=== PATIENT | female | born 2000 | race Two or more races ===

== ENCOUNTER 2025-01-23 14:05 | Emergency (ER) | payer MEDICAID, SELFPAY ==
[2025-01-23 14:24] VITALS: BP 116/76; PULSE 92; RESP 16; TEMP 36.6; O2SAT 98
--- NOTE | 2025-01-23 14:46 | PD.EDWOUND ---
ED Wound/Laceration-RME/HPI General Chief Complaint: Wound/Laceration Stated Complaint: LAC PALM L) HAND Time Seen by Provider: 01/23/25 14:11 Source: patient Arrival date/time: 01/23/25 14:05 This is a case of 24-year-old female with no medical history came into the emergency room due to laceration on the left hand palmar area history of present illness started 1 hour prior to arrival in the emergency room patient was cutting brownies accidentally cut his left thumb sustaining a 1.5 cm laceration on the left palm no other injury patient tetanus shot is not up-to-date Limitations: no limitations Related Data Previous Rx's ?Medication ?Instructions ?Recorded cephalexin 500 mg capsule 500 mg PO QID #40 caps 01/23/25 ibuprofen 800 mg tablet 800 mg PO Q8H PRN pain #20 tabs 01/23/25 mupirocin 2 % topical ointment 1 applic topical TID #22 grams 01/23/25 Allergies Allergy/AdvReac Type Severity Reaction Status Date / Time No Known Allergies Allergy Verified 01/23/25 14:09 Review of Systems Review of Systems Systems Reviewed: All systems reviewed, normal except as documented Constitutional Constitutional: Reports system reviewed and no additional complaints, except as documented and Reports as per HPI Cardiovascular Cardiovascular: Reports system reviewed and no additional complaints, except as documented and Reports as per HPI Respiratory Respiratory: Reports system reviewed and no additional complaints, except as documented and Reports as per HPI Gastrointestinal Gastrointestinal: Reports system reviewed and no additional complaints, except as documented and Reports as per HPI Musculoskeletal Musculoskeletal: Reports other (Hand pain) Integumentary/Breasts Skin/Breast: Reports other (Laceration) Neurologic Neurologic: Reports system reviewed and no additional complaints, except as documented and Reports confusion Psychiatric Psychiatric: Reports confusion Past Medical History Past Medical History CARDIAC: Negative Congestive Heart Failure RESPIRATORY: Positive Bronchitis and Pneumonia; Negative Chronic Obstructive Pulmonary Disease (COPD) GENITOURINARY: Negative Renal Disease ENDOCRINE: Negative Diabetes Mellitus Type 1 or Diabetes Mellitus Type 2 Social History SMOKING STATUS: Current every day smoker ED Exam General Limitations: Present no limitations General appearance: Present alert, in no apparent distress and other (Awake alert oriented not in distress nontoxic looking well-hydrated well-nourished) Head Head exam: Present atraumatic Eye Eye exam: Present normal appearance, PERRL and EOMI ENT ENT exam: Present normal exam, normal oropharynx and mucous membranes moist Neck Neck exam: Present normal inspection, full ROM and trachea midline; Absent tenderness, meningismus, lymphadenopathy or thyromegaly Chest Chest inspection: Present normal inspection and symmetric chest wall rise; Absent tenderness, rash or abscess Respiratory Respiratory exam: Present normal lung sounds bilaterally; Absent respiratory distress, wheezes, stridor, accessory muscle use or prolonged expiratory phase Cardiovascular Cardiovascular exam: Present regular rate, normal rhythm and normal heart sounds; Absent bradycardia, tachycardia, irregular rhythm, systolic murmur or diastolic murmur Abdominal Exam Abdominal exam: Present soft and normal bowel sounds; Absent distention, tenderness, guarding, rebound, rigidity, diminished bowel sounds, hyperactive bowel sounds, hypoactive bowel sounds or organomegaly Extremities Exam Extremities exam: Present normal inspection and full ROM Back Exam Back exam: Present normal inspection and full ROM Neurological Exam Neurological exam: Present alert, oriented X3, CN II-XII intact, normal gait and reflexes normal; Absent motor sensory deficit Psychiatric Psychiatric exam: Present normal affect and normal mood Skin Skin exam: Present warm, dry, intact, normal color and other (Noted 1.5 cm linear laceration left palm minimal bleeding no foreign body no bone or tendon injury no abscess no cellulitis ROM intact pulses were full and equal capillary refill less than 2 seconds sensory intact nail intact) Course Quality Measures none Orders Category Date Time Status Ibuprofen Tab [Motrin Tab] Med 01/23/25 14:36 Discontinued 800 mg PO X1 ONE TET,DIP/PERT AC (Adult)-Tdap [Boostrix Adult (Tdap) Med 01/23/25 14:36 Discontinued Vacc] 0.5 ml IMI .ONCE ONE cephALEXin [Keflex] Med 01/23/25 14:36 Discontinued 500 mg PO X1 ONE Vital Signs Vital signs: Vital Signs Temperature 97.9 F 01/23/25 14:24 Pulse Rate 92 01/23/25 14:24 Respiratory Rate 16 01/23/25 14:24 Blood Pressure 116/76 01/23/25 14:24 Pulse Oximetry (%) 98 01/23/25 14:24 Oxygen Delivery Method Room Air 01/23/25 14:24 Oxygen saturation is 98% room air PROCEDURES: Laceration Laceration 1: Side (If applicable): left (Left palmar) and right Size (cm): 1.5 Description: linear Depth: simple, single layer Local Anesthetic: lidocaine 1% Amount of anesthesia used (mL): 3 Pre-repair: wound explored, irrigated extensively and deep structures intact Skin layer closed with: nylon Suture size (cm): 4-0 Number of sutures: 3 Technique: simple, interrupted Wound / Laceration MDM Narrative MDM Narrative:: This is a case of 24-year-old female with no medical history came into the emergency room due to laceration on the left hand palmar area history of present illness started 1 hour prior to arrival in the emergency room patient was cutting brownies accidentally cut his left thumb sustaining a 1.5 cm laceration on the left palm no other injury patient tetanus shot is not up-to-date physical examination patient is awake alert oriented not in distress nontoxic looking well-hydrated well-nourished patient noted to have 1.5 linear laceration on the left thumb minimal bleeding no foreign body no tendon no bone injury no abscess no cellulitis ROM intact pulses were full and equal capillary refill less than 2 seconds sensory intact laceration repair was performed patient tolerated well the procedure bleeding controlled procedure done via [place] protocol and via sterile technique patient will follow-up with PCP in 2 days for reevaluation worsening symptoms or any signs and symptoms infection return to the emergency room immediately or call 911 patient was prescribed with cephalexin and mupirocin ointment to prevent infection and ibuprofen for pain Patient was discharged with comfortable condition walking with stable gait. Patient verbalized no further complains explained diagnosis and answered patient question. Patient is comfortable with the proposed management plan including the need to follow up with his/her primary care physician and any specialist if applicable Discussed patient for any urgent condition or worsening sx, He/She needed to go to emergency room immediately or call 911. Patient acknowledge the responsibility to follow up as instructed and to monitor her/his symptoms. For any persistence of the symptoms for more than 3-5 days return precaution advised. Discussed the result of the test and was given printed discharge instruction Patient data External records reviewed:: [facility] previous records Clinical information provided by:: patient Social determinants that could affect healthcare access:: none Patient has the following chronic illnesses:: None How is presenting disease/condition affected by chronic disease/condition?: no chronic disease Evaluation data The following diagnostics were reviewed and interpreted by me:: other (specify) (None) Lab and/or radiology exams considered but not ordered:: None Interpretation Summary: None Medications / Prescriptions Medications or Prescriptions considered but not ordered:: Given Medication administrations:: Medication Administration History Discontinued Medications Cephalexin HCl (Cephalexin 250 Mg Capsule) 500 mg PO X1 ONE Stop: 01/23/25 14:37 Diphtheria/Tetanus/Acell Pertussis (Diphth,Pertuss(Acell),Tet Vac 0.5 Ml Syr- Adult) 0.5 ml IMi .ONCE ONE Stop: 01/23/25 14:37 Ibuprofen (Ibuprofen Tab 400 Mg Tablet) 800 mg PO X1 ONE Stop: 01/23/25 14:37 Given Consultations Consultation(s) initiated? (list below): No Diagnosis Wound Differential Diagnosis: laceration Most likely diagnosis given after review of the tests above:: Palmar laceration Admission Indicated Admission indicated?: not indicated Explain why admission is indicated or not indicated:: Not indicated Admission Request Was there a request for admission?: No Admission Attestation Admission request attestation: Not indicated Disposition Plan Disposition Plan: Discharge Discharge Attestation Discharge Attestation: The patient and all family members were given an opportunity to ask questions and understood the discharge instructions. Discharge instructions specifically effects, indications for sooner follow up or return to the emergency department, and the expected course of current diagnosis. Patient condition: Stable Discharge Plan Plan Patient Disposition: HOME (Self Care) Patient condition on transfer: Stable Prescriptions/Referrals Prescriptions/Med Rec: New mupirocin 2 % ointment 1 applic topical TID Qty: 22 0RF ibuprofen 800 mg tablet 800 mg PO Q8H PRN (Reason: pain) Qty: 20 0RF cephalexin 500 mg capsule 500 mg PO QID Qty: 40 0RF Problem List Clinical Impression: Hand laceration Patient/Caregiver Discharge Instructions Education Materials: Suture Care, ED Laceration, Hand: All Closures Additional Instructions: Follow-up with your primary care physician in 2 days for reevaluation and wound check in 10 days for removal of suture worsening symptoms or any emergent concerns such as redness swelling discharge from the wound pain fever chills return to the emergency room immediately or call 911 finish the course of antibiotic keep wound clean and dry Print Language: Jamaican Stand Alone Forms: [employer] Award Info., Work/School Release, Patient Portal Info Letter PA/ENVELOPE SEALER Supervising Physician PA/ENVELOPE SEALER Supervising Physician: Dr. Domínguez
[2025-01-23] MEDS: DIPHTH,PERTUSS(ACELL),TET VAC 0.5 ML SYR- ADULT IMi (14:49)
[2025-01-23] MEDS: IBUPROFEN TAB 400 MG TABLET 800 MG PO (14:49)
== END 2025-01-23 15:19 | disposition home or self-care (01) ==
PROVIDERS: Emergency Provider Family Medicine; PCP Family Medicine
DX: S61.412A Laceration without foreign body of left hand, initial encounter (principal); W45.8XXA Other foreign body or object entering through skin, initial encounter; Z23 Encounter for immunization
CPT/HCPCS: 12002; 90471; 90715; 99283; A9270